=== PATIENT | female | born 1980 | race Caucasian/White ===

== ENCOUNTER 2017-10-26 13:06 | Emergency (ER) | payer MEDICAID ==
[~2017-10-26] VITALS: Ht 152.4 cm; Wt 66.0 kg
[~2017-10-26 13:06] MED LIST: FERR325C PO; IBUP-779 PO; MULT-1116 PO
[2017-10-26] MEDS ORDERED: ASPIRIN 81MG TABLET PO ONE (13:30)
[2017-10-26 14:55] LABS: BASOPHILS % 0.7 % (0.0-2.0); EOSINOPHILS % 1.7 % (0.0-5.0); HEMATOCRIT. 35.2 % (36.0-48.0); HEMOGLOBIN. 11.7 g/dL (12.0-16.0); MEAN CORPUSCULAR HEMOGLOBIN 27.7 pg (28.0-32.0); MEAN CORPUSCULAR VOLUME 83.8 fL (81.0-99.0); MEAN PLATELET VOLUME 9.7 fl (7.4-10.4); MONOCYTES % 4.7 % (2.0-8.0); NEUTROPHILS % 65.9 % (40.0-76.0); PLATELET 184 x1000/uL (130-400); RED CELL DISTRIBUTION WIDTH 13.9 % (11.6-14.6)
[2017-10-26 15:06] LABS: D-DIMER < 0.19 mg/L FEU (<0.50); PARTIAL THROMBOPLASTIN TIME 28.2 sec (23.4-31.0); PROTHROMBIN TIME 10.8 sec (9.4-11.6)
[2017-10-26 15:08] LABS: CARBON DIOXIDE 31 mEq/L (21-32); CHLORIDE 105 mEq/L (98-107); TROPONIN I < 0.02 ng/mL (0.00-0.04)
[2017-10-26 16:39] LABS: CLARITY URINE CLEAR (CLEAR); COLOR URINE YELLOW (YELLOW); KETONES URINE NEGATIVE (NEGATIVE); LEUKOCYTE ESTERASE URINE 1+ (NEGATIVE); NITRITE URINE NEGATIVE (NEGATIVE); OCCULT BLOOD URINE NEGATIVE (NEGATIVE); PH URINE 6.5 (4.5-8.0); PROTEIN URINE NEGATIVE (NEGATIVE); SPECIFIC GRAVITY URINE 1.013 (1.005-1.030); UROBILINOGEN URINE 0.2 E.U./dL (0.2-1.0)
[2017-10-26] MEDS ORDERED: ACETAMINOPHEN 325MG TABLET PO ONE (16:45)
[2017-10-26 17:20] VITALS: BP 149/92
== END 2017-10-26 17:20 | disposition home or self-care (01) ==
LOC: ER 13:06
DX: M94.0 Chondrocostal junction syndrome [Tietze] (principal); N17.0 Acute kidney failure with tubular necrosis; N39.0 Urinary tract infection, site not specified; F41.9 Anxiety disorder, unspecified; D64.9 Anemia, unspecified; E86.0 Dehydration; G62.9 Polyneuropathy, unspecified; I10 Essential (primary) hypertension; R82.71 Bacteriuria; Z79.82 Long term (current) use of aspirin; Z79.899 Other long term (current) drug therapy
CPT/HCPCS: 36415; 71045; 80053; 81001; 81025; 83880; 84484; 85025; 85379; 85610; 85730; 87804; 93005; 99285; Z7610